=== PATIENT | female | born 1965 | race Two or more races ===

== ENCOUNTER 2016-11-15 08:23 | Emergency (ER) | payer OTHER ==
[2016-11-15 08:32] VITALS: RESP 16; TEMP 98.4
[2016-11-15 08:52] LABS: COLOR YELLOW; LEUKOCYTE ESTERASE,URINE TRACE (NEGATIVE); NITRITE,URINE NEGATIVE (NEGATIVE)
--- NOTE | 2016-11-15 09:02 | EDPHY ---
H & P Stated Complaint: R lower abd pain x 3 days, urinary frequency - Personal History LMP (Females 10-55): Pre Menstrual Current Tetanus/Diphtheria Vaccine: Unsure Current Tetanus Diphtheria and Acellular Pertussis (TDAP): Unsure - Medical/Surgical History Hx Asthma: No Hx Chronic Respiratory Disease: No Hx Diabetes: No Hx Cardiac Disease: No Hx Renal Disease: No Hx Cirrhosis: No Hx Alcoholism: No Hx HIV/AIDS: No Hx Splenectomy or Spleen Trauma: No Other PMH: frequent utis - Social History Smoking Status: Never smoked Time Seen by Provider: 11/15/16 08:48 HPI/ROS: CHIEF COMPLAINT: Right lower quadrant abdominal pain x3 days HISTORY OF PRESENT ILLNESS: 51-year-old female with no history of abdominal surgeries complaining of right lower quadrant pain x3 days. Pain is reproducible with certain movements. Not exacerbated with food or bowel movements. She also notes increased urinary frequency with no dysuria. No hematuria. Bowel movements have been normal no melena or hematochezia. No nausea or vomiting. No back or flank pain. No fever or chills. No flu-like symptoms. Patient recently moved here [place]. While living in [place] and in [place] she noted multiple episodes of intermittent right lower quadrant pain for which he was evaluated by OBGYN told she had ovarian cyst and also had her IUD removed at that time and had upper endoscopic evaluation showing erosive esophagitis. Patient recently moved to [place] PRIMARY CARE PROVIDER: none currently REVIEW OF SYSTEMS: A ten point review of systems was performed and is negative with the exception of the items mentioned in the HPI PAST MEDICAL & SURGICAL HISTORY: No pertinent medical or surgical history SOCIAL HISTORY: nonsmoker. . PHYSICAL EXAM (Prior to examination, patient consented to physical exam, hands were washed and my usual and customary physical exam procedures followed) 1) GENERAL: Well-developed, well-nourished, alert and oriented. Appears to be in no acute distress. Smiling. Appears well. 2) HEAD: Normocephalic, atraumatic 3) HEENT: Pupils equal, round, reactive to light bilaterally. Sclera anicteric. Nasopharynx, oropharynx, clear, no lesions. 4) NECK: Full range of motion, no meningeal signs. 5) LUNGS: Clear auscultation bilaterally, no wheezes, no rhonchi, no retractions. 6) HEART: Regular rate and rhythm, no murmur, no heave, no gallop. 7) ABDOMEN: No guarding, positive McBurney's, negative Viveros's, negative Rovsing's, negative peritoneal sign, 8) MUSCULOSKELETAL: Moving all extremities, no focal areas of tenderness, no obvious trauma. No peripheral edema or discoloration. 9) BACK: No CVA tenderness. 10) SKIN: No rash, no petechiae. 11) Psychiatric: Patient is oriented X 3, there is no agitation. DIFFERENTIAL DIAGNOSIS: My differential diagnosis includes, but is not limited to, acute appendicitis, acute cholecystitis, bowel obstruction, acute pancreatitis, ovarian torsion, ectopic , gastritis and urinary tract infection. The patient understands that this diagnosis is provisional and can never be 100% accurate. This is a partial list of diagnoses considered. These considerations are based on history, physical exam, past history and reassessment. (Sabina Gutierrez) Constitutional: Initial Vital Signs Temperature (C) 36.9 C 11/15/16 08:29 Heart Rate 77 11/15/16 08:29 Respiratory Rate 16 11/15/16 08:29 Blood Pressure 116/85 H 11/15/16 08:29 O2 Sat (%) 96 11/15/16 08:29 O2 Delivery Mode Room Air Allergies/Adverse Reactions: No Known Allergies Allergy (Unverified 11/15/16 08:28) Home Medications: Medication Instructions Recorded NK [No Known Home Meds] 11/15/16 Medical Decision Making - Diagnostics Imaging Results: Imaging Impressions Abdomen Ultrasound 11/15/16 09:00 Impression: Unremarkable pelvic ultrasound with no source for right-sided pain. Ultrasound Abdomen Limited History: Right lower quadrant pain. Findings: A normal nor an abnormal appendix is visualized. No evidence for an abnormal fluid collection. There is some mild heterogeneous echogenicity at an area of point tenderness in the right lower quadrant in the region of mesenteric fat. This could represent inflammatory change in the mesenteric fat or a lymph node. Impression: Indeterminate study for appendix as a normal nor an abnormal appendix is visualized. Results called and discussed with Thee Gutierrez PA-C on November 15, 2016 at 1034 hours. Pelvic/Renal Ultrasound 11/15/16 09:00 Impression: Unremarkable pelvic ultrasound with no source for right-sided pain. Ultrasound Abdomen Limited History: Right lower quadrant pain. Findings: A normal nor an abnormal appendix is visualized. No evidence for an abnormal fluid collection. There is some mild heterogeneous echogenicity at an area of point tenderness in the right lower quadrant in the region of mesenteric fat. This could represent inflammatory change in the mesenteric fat or a lymph node. Impression: Indeterminate study for appendix as a normal nor an abnormal appendix is visualized. Results called and discussed with Thee Gutierrez PA-C on November 15, 2016 [address] 11/15/16 10:32 Impression: 1. Findings compatible with epiploic appendagitis lateral to the mid ascending colon on the right. No CT findings for appendicitis. Moderate constipation. 2. 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 3. Chronic bilateral spondylolysis at L5 and early degenerative change lower lumbar spine. Results called and discussed with Thee Gutierrez PA-C on November 15, 2016 at 1111 hours. Images reviewed by myself (Sabina Gutierrez) ED Course/Re-evaluation: 12:39 p.m.: This patient was re-evaluated with serial exams during her emergency department course. case discussed with secondary supervising physician Dr. Compa Bello. I discussed with the patient her imaging showing evidence of epiploic appendagitis. We discussed supportive care for this. There is no evidence of appendicitis. at this time she is sleeping but easily woken feels comfortable. I think the patient can be discharged. I do not think that surgical consultation is indicated. I think she can be treated with supportive anti-inflammatory care such as ibuprofen 600 mg with usual and customary NSAID precautions and instructions. Recommend follow up. She does not have primary care provider. She has been given name of Dr. Citlaly Chamorro and primary care provider Dr. Pamela Sánchez for follow-up and establishing primary care patient feels comfortable being discharged. All questions and concerns addressed by myself. (Sabina Gutierrez) I did not see this patient while she was in the emergency department. However her care was discussed with the PA while the patient was in the department. I agree with treatment plan and management (Compa Bello) - Data Points Laboratory Results: Laboratory Results 11/15/16 09:06 11/15/16 09:06 11/15/16 11/15/16 11/15/16 09:06 09:06 09:06 WBC 5.66 10^3/uL 10^3/uL (3.80-9.50) RBC 4.79 10^6/uL 10^6/uL (4.18-5.33) Hgb 15.5 g/dL g/dL (12.6-16.3) Hct 45.3 % % (38.0-47.0) MCV 94.6 fL fL (81.5-99.8) MCH 32.4 pg pg (27.9-34.1) MCHC 34.2 g/dL g/dL (32.4-36.7) RDW 11.4 % L % (11.5-15.2) Plt Count 251 10^3/uL 10^3/uL (150-400) MPV 11.0 fL fL (8.7-11.7) Neut % (Auto) 47.6 % % (39.3-74.2) Lymph % (Auto) 41.3 % % (15.0-45.0) [place] % (Auto) 8.7 % % (4.5-13.0) Eos % (Auto) 1.1 % % (0.6-7.6) Baso % (Auto) 1.1 % % (0.3-1.7) Nucleat RBC Rel Count 0.0 % % (0.0-0.2) Absolute Neuts (auto) 2.70 10^3/uL 10^3/uL (1.70-6.50) Absolute Lymphs (auto) 2.34 10^3/uL 10^3/uL (1.00-3.00) Absolute Monos (auto) 0.49 10^3/uL 10^3/uL (0.30-0.80) Absolute Eos (auto) 0.06 10^3/uL 10^3/uL (0.03-0.40) Absolute Basos (auto) 0.06 10^3/uL 10^3/uL (0.02-0.10) Absolute Nucleated RBC 0.00 10^3/uL 10^3/uL (0-0.01) Immature Gran % 0.2 % % (0.0-1.1) Immature Gran # 0.01 10^3/uL 10^3/uL (0.00-0.10) Sodium 144 mEq/L mEq/L (134-144) Potassium 4.1 mEq/L mEq/L (3.5-5.2) Chloride 108 mEq/L mEq/L (97-110) Carbon Dioxide 23 mEq/l mEq/l (22-31) Anion Gap 13 mEq/L mEq/L (8-16) BUN 17 mg/dL mg/dL (7-23) Creatinine 0.8 mg/dL mg/dL (0.6-1.0) Estimated GFR > 60 Glucose 83 mg/dL mg/dL (70-100) Calcium 9.5 mg/dL mg/dL (8.5-10.4) Total Bilirubin 0.9 mg/dL mg/dL (0.1-1.4) Conjugated Bilirubin 0.2 mg/dL mg/dL (0.0-0.5) Unconjugated Bilirubin 0.7 mg/dL mg/dL (0.0-1.1) AST 23 IU/L IU/L (14-46) ALT 34 IU/L IU/L (9-52) Alkaline Phosphatase 75 IU/L IU/L (38-126) Total Protein 7.6 g/dL g/dL (6.3-8.2) Albumin 4.6 g/dL g/dL (3.5-5.0) Lipase 128.0 IU/L IU/L (23-300) Beta HCG, Qual NEGATIVE Urine Color Urine Appearance Urine pH Ur Specific [place] Urine Protein Urine Ketones Urine Blood Urine Nitrate Urine Bilirubin Urine Urobilinogen Ur Leukocyte Esterase Urine RBC Urine WBC Ur Epithelial Cells Ur Renal Epithelial Cell Urine Crystals Ammonium Urate Crystals Calcium Carbonate Cryst Calcium Phosphate Cryst Calcium Oxalate Crystal Leucine Crystals Cystine Crystals Uric Acid Crystals Triple Phos Crystals Sulfonamide Crystals Cholesterol Crystals Tyrosine Crystals Bilirubin Crystals Amorphous Sediment Urine Bacteria Epithelial Casts Fatty Casts Hyaline Casts Granular Casts Waxy Casts Broad Casts RBC Casts WBC Casts Urine Mucus Urine Trichomonas Urine Yeast Urine Sperm Ur Oval Fat Bodies Ur Free Fat Droplets Urine Glucose Urine Comment 11/15/16 11/15/16 09:00 08:40 WBC RBC Hgb Hct MCV MCH MCHC RDW Plt Count MPV Neut % (Auto) Lymph % (Auto) [place] % (Auto) Eos % (Auto) Baso % (Auto) Nucleat RBC Rel Count Absolute Neuts (auto) Absolute Lymphs (auto) Absolute Monos (auto) Absolute Eos (auto) Absolute Basos (auto) Absolute Nucleated RBC Immature Gran % Immature Gran # Sodium Potassium Chloride Carbon Dioxide Anion Gap BUN Creatinine Estimated GFR Glucose Calcium Total Bilirubin Conjugated Bilirubin Unconjugated Bilirubin AST ALT Alkaline Phosphatase Total Protein Albumin Lipase Beta HCG, Qual Urine Color YELLOW Urine Appearance HAZY Urine pH 5.0 (5.0-7.5) Ur Specific [place] 1.025 (1.002-1.030) Urine Protein NEGATIVE (NEGATIVE) Urine Ketones NEGATIVE (NEGATIVE) Urine Blood NEGATIVE (NEGATIVE) Urine Nitrate NEGATIVE (NEGATIVE) Urine Bilirubin NEGATIVE (NEGATIVE) Urine Urobilinogen NEGATIVE EU EU (0.2-1.0) Ur Leukocyte Esterase TRACE H (NEGATIVE) Urine RBC Cancelled 1-3 /hpf /hpf (0-3) Urine WBC Cancelled 1-3 /hpf /hpf (0-3) Ur Epithelial Cells Cancelled 1+ /lpf /lpf (NONE-1+) Ur Renal Epithelial Cell Cancelled Urine Crystals Cancelled Ammonium Urate Crystals Cancelled Calcium Carbonate Cryst Cancelled Calcium Phosphate Cryst Cancelled Calcium Oxalate Crystal Cancelled Leucine Crystals Cancelled Cystine Crystals Cancelled Uric Acid Crystals Cancelled Triple Phos Crystals Cancelled Sulfonamide Crystals Cancelled Cholesterol Crystals Cancelled Tyrosine Crystals Cancelled Bilirubin Crystals Cancelled Amorphous Sediment Cancelled Urine Bacteria Cancelled Epithelial Casts Cancelled Fatty Casts Cancelled Hyaline Casts Cancelled Granular Casts Cancelled Waxy Casts Cancelled Broad Casts Cancelled RBC Casts Cancelled WBC Casts Cancelled Urine Mucus Cancelled TRACE /lpf /lpf (NONE-1+) Urine Trichomonas Cancelled Urine Yeast Cancelled Urine Sperm Cancelled Ur Oval Fat Bodies Cancelled Ur Free Fat Droplets Cancelled Urine Glucose NEGATIVE (NEGATIVE) Urine Comment Cancelled Medications Given: Discontinued Medications Sodium Chloride (Ns) 1,000 mls @ 0 mls/hr IV ONCE ONE PRN Reason: Wide Open Stop: 11/15/16 10:54 Last Admin: 11/15/16 10:53 Dose: 1,000 mls Departure - Departure Disposition: Home, Routine, Self-Care Clinical Impression: Epiploic appendagitis Condition: Good Instructions: Acute Abdominal Pain (ED) Additional Instructions: Seek immediate medical attention if you develop new or worsening symptoms, if you develop fevers, chills, inability to tolerate oral intake or any other symptoms that concerns you. Adult Pain & Fever Control: We recommend Acetaminophen (Tylenol) and Ibuprofen (Motrin,Advil) for pain and fever control. When fever is high or pain severe, both drugs can be used at the same time, but at different intervals. Please note the time differences. Your dose is: Ibuprofen 600mg every 6 hours with food OR Note: do not take Acetaminophen with Hydrocodone (Vicodin, Lortab) or Oycodone (Percocet). These medications also contain Acetaminophen. No more than 3000mg of Acetaminophen should be taken in 24 hours (for an adult). Referrals: Pamela Sánchez MD [[facility] [place] Primary Care Provider] - 1-2 days without fail Citlaly Chamorro MD [Medical Doctor] - 5-7 days, call for appt. (Dr. Citlaly Chamorro is a general surgeon)
[2016-11-15 09:19] LABS: % IMMATURE GRANULYOCYTES 0.2 % (0.0-1.1); ABSOLUTE IMMATURE GRANULOCYTES 0.01 10^3/uL (0.00-0.10); ADD DIFF? NO; ADD MORPH? NO; ADD SCAN? NO; ATYPICAL LYMPHOCYTE FLAG 30 (0-99); FRAGMENT RBC FLAG 0 (0-99); HEMATOCRIT 45.3 % (38.0-47.0); HEMOGLOBIN 15.5 g/dL (12.6-16.3); LEFT SHIFT FLG 0 (0-99); LIPEMIA HEMOLYSIS FLAG 90 (0-99); MEAN CELL HEMOGLOBIN 32.4 pg (27.9-34.1); MEAN CELL HEMOGLOBIN CONCENTR. 34.2 g/dL (32.4-36.7); MEAN CELL VOLUME 94.6 fL (81.5-99.8); PLATELET CLUMPS FLAG 10 (0-99); PLATELET COUNT 251 10^3/uL (150-400); RED BLOOD CELL COUNT 4.79 10^6/uL (4.18-5.33); RED CELL DISTRIBUTION WIDTH 11.4 % (11.5-15.2)
[2016-11-15 09:21] LABS: MUCUS TRACE /lpf (NONE-1+)
[2016-11-15 09:47] LABS: ALANINE AMINOTRANSFERASE 34 IU/L (9-52); ALBUMIN 4.6 g/dL (3.5-5.0); ALKALINE PHOSPHATASE 75 IU/L (38-126); ANION GAP 13 mEq/L (8-16); ASPARTATE AMINOTRANSFERASE 23 IU/L (14-46); BILIRUBIN,TOTAL 0.9 mg/dL (0.1-1.4); BILIRUBIN-CONJUGATED 0.2 mg/dL (0.0-0.5); BILIRUBIN-UNCONJUGATED 0.7 mg/dL (0.0-1.1); CALCIUM 9.5 mg/dL (8.5-10.4); CARBON DIOXIDE 23 mEq/l (22-31); CHLORIDE 108 mEq/L (97-110); CREATININE 0.8 mg/dL (0.6-1.0); GLOMERULAR FILTRATION RATE > 60; GLUCOSE 83 mg/dL (70-100); POTASSIUM 4.1 mEq/L (3.5-5.2); SODIUM 144 mEq/L (134-144); TOTAL PROTEIN 7.6 g/dL (6.3-8.2)
[2016-11-15] MEDS ORDERED: IOPAMIDOL (ISOVUE-300) 100 ML BTL ONE (10:35)
[2016-11-15] MEDS ORDERED: NS 1,000 ML IV ONE (10:53)
[2016-11-15 13:10] VITALS: BP 114/80; PULSE 63; O2SAT 97
== END 2016-11-15 13:09 | disposition home or self-care (01) ==
DX: K38.8 Other specified diseases of appendix (principal)
CPT/HCPCS: Q9967

== ENCOUNTER → 2017-06-17 | Outpatient (CLI) | payer OTHER | LOC: FIMAGING 10:58 | PROVIDERS: ATTEND Obstetrics & Gynecology | DX: Z12.31 Encounter for screening mammogram for malignant neoplasm of breast (principal) ==